=== PATIENT | male | born 1940 | race Caucasian/White ===

== ENCOUNTER → 2023-01-30 | Outpatient (CLI) | payer MEDICARE, SELFPAY ==
--- NOTE | 2023-01-30 12:20 | MRI_ITS ---
RECTAL MRI 01/30/2023 1:24 PM CLINICAL HISTORY: RECTAL CA COMPARISON: None available. TECHNIQUE: The following sequences were obtained through the pelvis: high resolution T2 weighted images in the axial, sagittal, oblique axial, oblique coronal planes, diffusion weighted images, and T1 axial images following gadolinium administrations. 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 It extends beyond the muscularis propria anteriorly. The distance between the inferior edge of the tumor and the anal verge is : Approximately 3 cm. T Stage: The tumor extends at least 8 mm beyond muscularis propria. Peritoneal reflection: Not involved. Anal sphincter: Questionable invasion of the bilateral internal anal sphincters. Pelvic lymph nodes: Several enlarged mesorectal lymph nodes, one of which is 1 mm from the mesorectal fascia on the left. There is also left pelvic sidewall lymphadenopathy Circumferential resection margin: 5 mm left upper mesorectal lymph node within 1 mm from the mesorectal fascia. Extramural vascular invasion: Questionable extramural vascular invasion. Ascites: None Bones: Enhancing 9 mm lesion at the left pubic symphysis. Other: Moderate prostatomegaly. 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 Stage = T3c: extends between 5-10 mm beyond muscularis propria N2: greater than 4 mesorectal and left pelvic sidewall lymphadenopathy MRF involved: at least one upper left mesorectal node measuring within 1 mm distance from the mesorectal fascia. Enhancing 9 mm lesion at the left pubic symphysis is questionable for metastatic disease. Consider CT chest/abd/pelvis to assess for metastases. Moderate prostatomegaly. Recommend correlation with PSA levels and urology consult. Electronically Signed: Shane Sofia MD at 3:06 EST ,
--- NOTE | 2023-01-30 12:30 | RAD_ITS ---
STUDY: X-RAY - ORBITS REASON FOR EXAM: Male, 82 years old. HX METAL TO EYES- PRE MRI TECHNIQUE: 2 view(s) of the orbits were obtained. COMPARISON: None. FINDINGS: Normal bilateral orbits without a metallic orbital foreign body. Normal visualized facial bones. Normal paranasal sinuses. The soft tissue structures are unremarkable. RAD/Orbits for Foreign Body IMPRESSION: No demonstrated metallic orbital foreign body. The patient is cleared for an MRI examination. Electronically Signed: Mohsen Alvarado MD at 12:46 EST ,
[2023-01-30 13:34] LABS: CREATININE FINGERSTICK 0.9 mg/dL (0.70-1.30); EGFR FINGERSTICK > 60.0000 mL/min (>60)
== END | disposition home or self-care (01) ==
DX: C20 Malignant neoplasm of rectum (principal)
CPT/HCPCS: 70030; 72197; A9575